=== PATIENT | female | born 2000 ===

== ENCOUNTER 2024-04-30 01:11 | Inpatient (IN) | payer BC ==
[2024-04-30] MEDS ORDERED: Sodium Chloride 0.9% 20 ML SDV IV PRN (01:22)
[2024-04-30] MEDS ORDERED: Misoprostol 25 MCG (1/4 of 100 MCG) Tab VAG PRN ×2 (01:22)
[2024-04-30] MEDS ORDERED: Methylergonovine 0.2 MG/1 ML Amp IM PRN (01:22)
[2024-04-30] MEDS ORDERED: Carboprost Tromethamine 250 MCG/1 mL Vial IM PRN (01:22)
[2024-04-30] MEDS ORDERED: Misoprostol 200 MCG Tab RECTAL PRN (01:22)
[2024-04-30] MEDS ORDERED: Sodium Chloride 0.9% 10 ML Syringe FLUSH PRN (01:22)
[2024-04-30] MEDS ORDERED: Tranexamic Acid IN NACL,ISO-OS 1,000 MG in Premix Bag 1 BAG IV PRN (01:22)
[2024-04-30] MEDS ORDERED: Ondansetron 4 MG/2 ML SDV IVPUSH PRN (01:22)
[2024-04-30] MEDS ORDERED: Acetaminophen 325 MG Tab PO PRN (01:22)
[2024-04-30] MEDS ORDERED: Lidocaine 1% 50 ML MDV INJECT PRN (01:22)
[2024-04-30] MEDS ORDERED: Terbutaline 1 MG/ML SDV SUBCUT PRN (01:22)
[2024-04-30] MEDS ORDERED: Butorphanol 2 MG/ML SDV IVPUSH PRN (01:22)
[2024-04-30] MEDS ORDERED: Water For Irrigation,Sterile 1,000 ML Container IRR PRN (01:22)
[2024-04-30] MEDS ORDERED: Sodium Chloride 0.9% 2.5 ML Syringe FLUSH PRN (01:22)
[2024-04-30] MEDS ORDERED: Oxytocin/0.9 % Sodium Chloride 30 UNIT/500 ML BAG IV SCH (01:30)
[2024-04-30] MEDS ORDERED: Misoprostol 200 MCG Tab PO PRN (01:39)
[2024-04-30 02:14] LABS: HEMATOCRIT 32.7 % (37.0-47.0); HEMOGLOBIN 10.9 g/dL (12.0-16.0); MEAN CORPUSCULAR HEMOGLOBIN 27.1 pg (28.0-32.0); MEAN CORPUSCULAR HGB CONC 33.3 g/dL (32.0-36.0); MEAN CORPUSCULAR VOLUME 81.3 fL (83.0-99.0); MEAN PLATELET VOLUME 10.1 fL (9.4-12.3); PLATELET COUNT,PLT 237 K/uL (150-400); RED BLOOD CELL COUNT 4.02 M/uL (4.10-5.30)
[2024-04-30 02:33] LABS: CREATININE,URINE RAND 109.3 mg/dL; PROTEIN CREATININE RATIO,URINE 0.5; PROTEIN,URINE RANDOM 58.9 mg/dL (<11.9)
[2024-04-30 02:41] LABS: A/G RATIO 0.6 (0.9-1.6); ALBUMIN 2.4 g/dL (3.4-5.0); BILIRUBIN TOTAL 0.3 mg/dL (0.2-1.0); CALCIUM 8.1 mg/dL (8.5-10.1); CARBON DIOXIDE,CO2 21.9 mmol/L (21.0-32.0); CREATININE 0.7 mg/dL (0.6-1.0); EST CRCL DRUG DOSING (CG) 102.51 mL/min; POTASSIUM,K 3.7 mmol/L (3.5-5.1); PROTEIN TOTAL,TP 6.4 g/dL (6.4-8.2)
[2024-04-30] MEDS: Oxytocin/0.9 % Sodium Chloride 30 UNIT/500 ML BAG IV SCH (03:00)
[2024-04-30] MEDS: Lactated Ringers 1,000 ML IV SCH (03:00)
[2024-04-30] MEDS ORDERED: Phenylephrine HCl In 0.9% NaCl 1 MG/10 ML Syringe IVPUSH PRN (07:28)
[2024-04-30] MEDS ORDERED: ePHEDrine 50 MG/ML SDV IVPUSH PRN ×2 (07:28)
[2024-04-30] MEDS ORDERED: dexmedeTOMIDine HCl 200 MCG/2 ML SDV EPIDUR SCH (07:30)
[2024-04-30] MEDS: Ropivacaine HCl/PF 400 MG in Premix Bag 1 BAG EPIDUR SCH (10:25)
[2024-04-30] MEDS ORDERED: Simethicone 80 MG Tab.Chew PO PRN (16:45)
[2024-04-30] MEDS ORDERED: diphenhydrAMINE 50 MG Cap PO PRN (16:45)
[2024-04-30 17:07] LABS: PH,UMBILICAL ARTERIAL 7.191 (7.18-7.38); PH,UMBILICAL VENOUS 7.27 (7.25-7.45)
[2024-04-30] MEDS: Benzocaine/Menthol 20%-0.5% Spray 78 GM Cannister TOP PRN (17:52)
[2024-04-30] MEDS: Ibuprofen 800 MG Tab PO PRN (17:52)
[2024-04-30] MEDS: Lanolin 100% Cream 7 GM Tube TOP PRN (17:52)
[2024-04-30] MEDS: Witch Hazel Medicated Pads 40/Jar TOP PRN (17:53)
[2024-04-30] MEDS: Acetaminophen 500 MG Tab PO PRN (19:56)
[2024-04-30] MEDS: Docusate Sodium 100 MG Cap PO PRN (19:57)
[2024-05-01 05:50] LABS: HEMATOCRIT 28.7 % (37.0-47.0); HEMOGLOBIN 9.4 g/dL (12.0-16.0); MEAN CORPUSCULAR HEMOGLOBIN 26.9 pg (28.0-32.0); MEAN CORPUSCULAR HGB CONC 32.8 g/dL (32.0-36.0); PLATELET COUNT,PLT 218 K/uL (150-400); WHITE BLOOD CELL COUNT,WBC 9.78 K/uL (3.9-11.3)
[2024-05-01] MEDS: Prenatal Multivitamin with Calcium/Folic Acid/Iron Tab PO SCH (10:22)
[2024-05-01] MEDS: Ferrous Sulfate 325 MG Tab PO SCH (10:27)
[2024-05-01] MEDS: Measles, Mumps & Rubella Vaccine 0.5 ML SDV SUBCUT ONE (16:54)
[2024-05-01 17:28] VITALS: BP 109/70; PULSE 78
== END 2024-05-01 17:10 | disposition home or self-care (01) | DRG 560 ==
LOC: MW.OB 01:11 → OBSVTOIN 15:28 → MW.OB 18:23
PROVIDERS: ADMIT Obstetrics & Gynecology Obstetrics; ATTEND Obstetrics & Gynecology
PROC: 10E0XZZ Delivery of Products of Conception, External Approach (ICD-10-PCS; principal; 2024-04-30)
PROC: 0KQM0ZZ Repair Perineum Muscle, Open Approach (ICD-10-PCS; 2024-04-30)
PROC: 3E0R3BZ Introduction of Anesthetic Agent into Spinal Canal, Percutaneous Approach (ICD-10-PCS; 2024-04-30)
PROC: 00HU33Z Insertion of Infusion Device into Spinal Canal, Percutaneous Approach (ICD-10-PCS; 2024-04-30)
PROC: 10907ZC Drainage of Amniotic Fluid, Therapeutic from Products of Conception, Via Natural or Artificial Opening (ICD-10-PCS; 2024-04-30)
PROC: 3E033VJ Introduction of Other Hormone into Peripheral Vein, Percutaneous Approach (ICD-10-PCS; 2024-04-30)
PROC: 3E0234Z Introduction of Serum, Toxoid and Vaccine into Muscle, Percutaneous Approach (ICD-10-PCS; 2024-04-30)
DX: O12.14 Gestational proteinuria, complicating childbirth (principal); O70.1 Second degree perineal laceration during delivery; Z3A.39 39 weeks gestation of pregnancy; Z37.0 Single live birth; O99.02 Anemia complicating childbirth; D64.9 Anemia, unspecified; O69.81X0 Labor and delivery complicated by cord around neck, without compression, not applicable or unspecified; Z23 Encounter for immunization
CPT/HCPCS: 01967; 36415; 51702; 59025; 59300; 59409; 80053; 82570; 82803; 83615; 84156; 85027; 86592; 86762; 86850; 86900; 86901; 90471; 90707; A9270-GY; J2590; J2795; J7120